=== PATIENT | female | born 1955 | race Caucasian/White ===

== ENCOUNTER → 2017-08-02 | Outpatient (CLI) | payer OTHER | LOC: FIMAGING 11:34 | DX: Z12.31 Encounter for screening mammogram for malignant neoplasm of breast (principal) ==

== ENCOUNTER 2018-05-20 23:21 | Observation (INO) | payer OTHER ==
[2018-05-21] MEDS ORDERED: ONDANSETRON 4 MG/2 ML VIAL IVP PRN (00:24)
[2018-05-21] MEDS ORDERED: ONDANSETRON DISINTEGRATING 4 MG TAB PO PRN (00:24)
[2018-05-21] MEDS ORDERED: ACETAMINOPHEN 325 MG TAB PO PRN (00:24)
[2018-05-21] MEDS ORDERED: oxyCODONE IR 5 MG TAB PO PRN (00:24)
[2018-05-21] MEDS ORDERED: hydrALAZINE 25 MG TAB PO PRN (00:25)
[2018-05-21] MEDS ORDERED: IBUPROFEN 600 MG TAB PO PRN ×2 (00:36→07:56)
--- NOTE | 2018-05-21 00:46 | PDGENHP ---
History and Physical - Chief Complaint Hematoma - History of Present Illness 62 yo F w/ hypothyroidism presents after complications from plastic surgery. The patient underwent a neck lift with Dr. Esqueda today. After the surgery she was noted have severely elevated BP (SBP>200) and she then developed a hematoma. She was taken back to the OR for evacuation. Dr. Esqueda requested the patient by admitted for monitoring of blood pressure overnight. At the time of my evaluation the patient is feeling well. She denies symptoms aside form fatigue. She has a clean, intact surgical dressing in place. Case discussed with surgeon Dr. Esqueda; records reviewed. History Information - Allergies/Home Medication List Allergies/Adverse Reactions: No Known Allergies Allergy (Unverified 12/25/14 15:02) I have personally reviewed and updated: family history, medical history - Past Medical History Additional medical history: Hypothyroid - Surgical History Additional surgical history: Knee surgery. Neck lift - Family History Positive for: hypertension - Social History Smoking Status: Never smoked Review of Systems Review of Systems: ROS: 10pt was reviewed & negative except for what was stated in HPI & below Physical Exam Physical Exam: Temp Pulse Resp BP Pulse Ox 36.4 C 91 16 140/68 H 92 05/21/18 00:29 05/21/18 00:29 05/21/18 00:29 05/21/18 00:29 05/21/18 00:29 Constitutional: no apparent distress, appears nourished Eyes: PERRL, EOMI Ears, Nose, Mouth, Throat: moist mucous membranes, other (Surgical dressing in place) Cardiovascular: regular rate and rhythym, no murmur, rub, or gallop Respiratory: no respiratory distress, clear to auscultation Gastrointestinal: normoactive bowel sounds, soft, non-tender abdomen Skin: warm, normal color Musculoskeletal: full muscle strength, no muscle tenderness Neurologic: AAOx3, CN II-XII Intact Psychiatric: interacting appropriately, not anxious Assessment & Plan Assessment: 62 yo F w/ hypothyroid presents with complications from plastic surgery. Plan: 1. Neck hematoma - Occurred after plastic surgery; likely exacerbated by elevated blood pressure after the procedure. The patient denies personal history of elevated blood pressure but does tell me that it runs in her family. She is doing well at the time of my evaluation. - Admit for observation - Hydralazine PRN for SBP>[address] Esqueda's request - Dr. Esqueda (plastics) will visit the patient in the morning - Case discussed with primary surgeon Diet - Clears Code - Full Ppx - SCDs Dispo - Admit under observation status
[2018-05-21] MEDS ORDERED: MELATONIN 3 MG TAB PO PRN (01:47)
[2018-05-21 05:16] LABS: PLATELET COUNT 155 10^3/uL (150-400)
[2018-05-21 07:55] VITALS: BP 133/78
[2018-05-21] MEDS ORDERED: ARNICA PO PRN (07:56)
[2018-05-21] MEDS ORDERED: LEVOTHYROXINE 75 MCG TAB PO SCH (08:30)
--- NOTE | 2018-05-21 09:25 | HOSPPROG ---
Hospitalist Progress Note Assessment/Plan: 2 yo F w/ hypothyroid presents with complications from plastic surgery. First encounter, chart reviewed. *neck hematoma -after surgery and was hypertensive *leukocytosis -repeat labs early next week -most likely stress induced *anemia -further f/u w her pcp *hypothyroid -resumes Synthroid *plan: dc home with f/u w Dr Ramesh and her pcp Subjective: Itzel says she feels swollen and a bit 'fuzzy' wants to go home. Objective: Vital Signs Temp Pulse Resp BP Pulse Ox 37.0 C 77 16 133/78 H 93 05/21/18 07:54 05/21/18 07:54 05/21/18 07:54 05/21/18 07:54 05/21/18 07:54 Laboratory Results 05/21/18 04:55 05/21/18 04:55 - Physical Exam Constitutional: no apparent distress, appears nourished Eyes: PERRL Ears, Nose, Mouth, Throat: other (neck area w some ecchymosis, no significant hematoma seen) Respiratory: no respiratory distress Skin: warm Musculoskeletal: full muscle strength Neurologic: AAOx3 Psychiatric: interacting appropriately ICD10 Worksheet Patient Problems: Problems Problem Status Onset Hematoma of neck Acute - ICD10 Problem Qualifiers (1) Hematoma of neck
--- NOTE | 2018-05-21 10:10 | GDS ---
DISCHARGE DIAGNOSES: 1. Neck hematoma after plastic surgery. 2. Leukocytosis. 3. Anemia. 4. Hypothyroidism. HISTORY OF PRESENT ILLNESS: Briefly, the patient is a 62-year-old female with hypothyroidism who pre sented with complications of a hematoma from plastic surgery. She was admitted to the [facility] of uncontrolled hypertension. Suspect this was stress related. This had subsequently resolved. She will be discharged home with close followup with Dr. Esqueda. HOSPITAL COURSE: 1. Neck hematoma. Very minimal ecchymosis on her left neck area almost completely resolved. 2. Leukocytosis. This was likely stress induced. We will have her get her followup next week. 3. Anemia. Further follow up with her PCP. 4. Hypothyroidism on Synthroid. DISCHARGE CONDITION: Stable. VITAL SIGNS: Blood pressure is 133/78. Heart rate is 77. Respirator y rate is 16, O2 sats on room air 93%. Temperature is 37 degrees Celsius. DISCHARGE MEDICATIONS: Please see MAR. DISCHARGE INSTRUCTIONS: 1. To follow up with Dr. Esqueda as scheduled. 2. Get repeat labs early next week to assure stability of her white blood cell count and further fol lowup with her anemia. 3. If she develops fever, chills, or worsening pain, return to the ER. /[id number]/MODL
== END 2018-05-21 10:03 | disposition home or self-care (01) ==
LOC: F3E 05-21 00:17 → INTOOBSV 05-21 00:17
PROVIDERS: ADMIT Specialist; ATTEND Specialist
DX: L76.31 Postprocedural hematoma of skin and subcutaneous tissue following a dermatologic procedure (principal); R03.0 Elevated blood-pressure reading, without diagnosis of hypertension; D72.829 Elevated white blood cell count, unspecified; D64.9 Anemia, unspecified; E03.9 Hypothyroidism, unspecified; Z79.899 Other long term (current) drug therapy; Z82.49 Family history of ischemic heart disease and other diseases of the circulatory system; Y83.4 Other reconstructive surgery as the cause of abnormal reaction of the patient, or of later complication, without mention of misadventure at the time of the procedure
CPT/HCPCS: G0378 ×2

== ENCOUNTER → 2018-12-16 | Outpatient (CLI) | payer OTHER | LOC: FIMAGING 15:53 ==